=== PATIENT | male | born 1995 | race Caucasian/White ===

== ENCOUNTER 2017-04-11 18:34 | Emergency (ER) | payer SELFPAY ==
[~2017-04-11] VITALS: Ht 172.7 cm; Wt 108.2 kg
[~2017-04-11 18:34] MED LIST: BACTRIM DS1 TAB OR; FLEXERIL PO; LORTAB 7.5-3251 TAB PO; LORTAB5 OR; MOTRIN800 MG PO; NO; NO HOME MEDS; PROAIR HFA IN; TORADOL OR; ULTRAM50 M1 PO; ULTRAM50 MG OR; ZOFRAN4 M1 OR; ZOFRAN4 MG/TAB PO
[2017-04-11] MEDS ORDERED: KEFLEX500 M1 PO (19:39)
[2017-04-11 19:45] VITALS: BP 127/51
== END 2017-04-11 19:45 | disposition home or self-care (01) | DRG 605 ==
LOC: ED 18:34
PROC: 0HQGXZZ Repair Left Hand Skin, External Approach (ICD-10-PCS; principal; 2017-04-11)
DX: S61.211A Laceration without foreign body of left index finger without damage to nail, initial encounter (principal); W26.8XXA Contact with other sharp object(s), not elsewhere classified, initial encounter; Y93.H9 Activity, other involving exterior property and land maintenance, building and construction; Y92.007 Garden or yard of unspecified non-institutional (private) residence as the place of occurrence of the external cause

== ENCOUNTER 2017-08-16 22:49 | Emergency (ER) | payer SELFPAY ==
[~2017-08-16] VITALS: Ht 172.7 cm; Wt 102.0 kg
[~2017-08-16 22:49] MED LIST changes: +KEFLEX500 M1 PO
[2017-08-17] MEDS ORDERED: AMOX/K CLAV875 M1 PO (00:15)
[2017-08-17] MEDS ORDERED: LORTAB 1010 MG PO (00:15)
[2017-08-17 00:26] VITALS: BP 124/71
== END 2017-08-17 | disposition home or self-care (01) | DRG 605 ==
LOC: ED 22:49
DX: S51.852A Open bite of left forearm, initial encounter (principal); S61.452A Open bite of left hand, initial encounter; S61.451A Open bite of right hand, initial encounter; F17.210 Nicotine dependence, cigarettes, uncomplicated; W54.0XXA Bitten by dog, initial encounter; Y92.009 Unspecified place in unspecified non-institutional (private) residence as the place of occurrence of the external cause

== ENCOUNTER 2017-12-27 21:23 | Emergency (ER) | payer SELFPAY ==
[~2017-12-27] VITALS: Ht 172.7 cm; Wt 103.8 kg
[~2017-12-27 21:23] MED LIST changes: +AMOX/K CLAV875 M1 PO; +LORTAB 1010 MG PO
[2017-12-27 22:41] LABS: IMMATURE GRANULOCYTES 0.3 % (0.0-1.0); MEAN CORPUSCULAR HGB 27.8 pG CALC (26.0-32.0); MEAN CORPUSCULAR HGB CONC 33.1 g/L CALC (32.0-36.0); NEUT# 9.48 thou/uL (1.82-7.42); RED BLOOD COUNT 6.33 mill/uL (4.70-6.10); RED CELL DISTRI WIDTH 13.2 % (11.5-15.5)
[2017-12-27 22:45] LABS: URINE BILIRUBIN - DIPSTICK NEGATIVE (NEGATIVE); URINE BLOOD DIPSTICK MODERATE (NEGATIVE); URINE COLOR YELLOW; URINE GLUCOSE - DIPSTICK NEGATIVE (NEGATIVE); URINE KETONE NEGATIVE (NEGATIVE); URINE LEUK ESTERASE NEGATIVE (NEGATIVE); URINE NITRITE - DIPSTICK NEGATIVE (Negative); URINE PH 5.5 (4.5-8.0); URINE PROTEIN - DIPSTICK TRACE mg/dL (NEG-TRACE); URINE SPECIFIC GRAVITY >=1.030; URINE UROBILINOGEN - DIPSTICK 0.2 E.U./dL (0.2)
[2017-12-27 22:45] LABS: HEMATOCRIT 53.1 % (39.0-50.0); HEMOGLOBIN 17.6 g/dl (14.0-18.0); MEAN CELL VOLUME 83.9 fL CALC (80.0-100.0)
[2017-12-27 22:47] LABS: URINE CLARITY CLEAR; URINE WBC 0-2 WBC/hpf (0-5)
[2017-12-27 22:50] LABS: ALKALINE PHOSPHATASE 67 u/l (38-126); AMYLASE 40 u/l (30-110); BILIRUBIN, TOTAL 0.9 mg/dL (0.0-1.4); BUN 19 mg/dL (9-20); BUN/CREATININE RATIO 18 (12-20 (CALC)); CARBON DIOXIDE 30 mmol/l (22-30); CHLORIDE 92 mmol/l (95-108); GFR > 60 ML/MIN (>=60 (CALC)); GFR FOR AFR.AMER. > 60 ML/MIN (>=60 (CALC)); LIPASE 35 u/l (23-300); SGOT/AST 36 u/l (17-59); SGPT/ALT 45 u/l (21-72); SODIUM 137 mmol/l (137-146); TOTAL PROTEIN 9.1 g/dL (6.3-8.2)
[2017-12-27 22:58] LABS: ALBUMIN 4.9 g/dL (3.2-5.0); ANION GAP 19 (6-22 (CALC)); POTASSIUM 3.8 mmol/l (3.5-5.1)
[2017-12-27 23:02] LABS: MYOGLOBIN 123 ng/mL (0 - 121)
[2017-12-28] MEDS ORDERED: ZOFRAN ODT4 MG PO (01:23)
[2017-12-28 01:35] VITALS: BP 108/63
== END 2017-12-28 01:39 | disposition home or self-care (01) | DRG 392 ==
LOC: ED 21:23
PROVIDERS: Emergency Medicine
DX: R11.2 Nausea with vomiting, unspecified (principal); R10.11 Right upper quadrant pain; F17.210 Nicotine dependence, cigarettes, uncomplicated; S30.811A Abrasion of abdominal wall, initial encounter; W18.31XA Fall on same level due to stepping on an object, initial encounter; Y93.H2 Activity, gardening and landscaping; Y92.007 Garden or yard of unspecified non-institutional (private) residence as the place of occurrence of the external cause; N28.1 Cyst of kidney, acquired
CPT/HCPCS: Q9967

== ENCOUNTER 2019-01-29 18:15 | Emergency (ER) | payer SELFPAY ==
[~2019-01-29] VITALS: Ht 172.7 cm; Wt 150.0 kg
[~2019-01-29 18:15] MED LIST changes: +ZOFRAN ODT4 MG PO
[2019-01-29 19:05] VITALS: BP 125/83
== END 2019-01-29 19:09 | disposition home or self-care (01) | DRG 605 ==
LOC: ED 18:15
PROC: 0HQDXZZ Repair Right Lower Arm Skin, External Approach (ICD-10-PCS; principal; 2019-01-29)
DX: S61.511A Laceration without foreign body of right wrist, initial encounter (principal); W26.8XXA Contact with other sharp object(s), not elsewhere classified, initial encounter; Y93.89 Activity, other specified; Y92.009 Unspecified place in unspecified non-institutional (private) residence as the place of occurrence of the external cause